=== PATIENT | female | born 1960 | race Caucasian/White ===

== ENCOUNTER → 2019-07-11 | Day surgery (SDC) | payer OTHER ==
--- NOTE | 2019-07-11 08:25 | MMO ---
MAMMOGRAPHIC GUIDED STEREOTACTIC BREAST BIOPSY PREPROCEDURE DIAGNOSIS: Left breast calcifications PROCEDURE: 1. Stereotactic biopsy of left breast calcifications with vacuum assistance 2. Specimen radiograph 3. Post procedure mammogram SECURITY INSPECTOR: Mary ANESTHESIA: 11 mL of buffered 1% lidocaine with epinephrine SPECIMEN: 6 -10-gauge vacuum-assisted core biopsy specimens TECHNIQUE: Prior to the procedure, the risks and benefits of stereotactic biopsy of the suspicious breast calcif ications were explained with the patient and full consent was obtained. The prior mammograms were reviewed showing calcifications in the 9:00 position of the left breast. The calcifications were localized with the stereotactic machine with approach from lateral. The breas t was prepped with Betadine. Lidocaine was used to anesthetize the skin and tissues surrounding the biopsy site. A skin incision was made to allowing for passage of the 10-gauge vacuum-assisted biopsy device. This device was then placed using stereotactic guidance into the region of the calcifications. 12 core biopsies were then performed. A specimen radiograph showed calcifications within at least one of the specimens. A biopsy clip was then placed at the biopsy site. A postprocedure mammogram showed the clip in approp riate position at the biopsy site in the region where the suspicious calcification are seen on the preprocedure mammogram.
== END ==
LOC: MAMMO 07:08
PROVIDERS: ATTEND Family Medicine
PROC: 0H9U3ZX Drainage of Left Breast, Percutaneous Approach, Diagnostic (ICD-10-PCS; principal; 2019-07-11)
DX: C50.312 Malignant neoplasm of lower-inner quadrant of left female breast (principal)
CPT/HCPCS: 19081; 76098; 88305; 88341; 88342; 88361